=== PATIENT | male | born 1990 | race Caucasian/White ===

== ENCOUNTER 2019-09-28 23:22 | Emergency (ER) | payer MEDICAID ==
[~2019-09-28] VITALS: Ht 180.3 cm; Wt 72.6 kg
--- NOTE | 2019-09-28 23:30 | NUR ---
ED Nurse Note: brought in by ambulance natalya ra 28 from [place] for substance abuse; patient reports using meth x 2200. blood glucose 99. patient ao3 with rambling speech. Follows commands. Patient placed in room and changed into gown. no acute distress. PD at bedside. Denies HI or SI.
[2019-09-28 23:34] VITALS: BP 152/98
--- NOTE | 2019-09-28 23:50 | NUR ---
ED Nurse Note: ERMD at bedside
[2019-09-29] MEDS ORDERED: LORazepam 1mg tab ORAL ONE
--- NOTE | 2019-09-29 | NUR ---
ED Nurse Note: pt refused to provide UA
--- NOTE | 2019-09-29 00:04 | NUR ---
ED Nurse Note: Pt in bed. al mediations administered, pt tolerated well no ss of distress noted. Pt rambling, restless, irritable. Will continue to monitor.
--- NOTE | 2019-09-29 00:10 | Emergency Room Report ---
History of Present Illness General Chief Complaint: Substance Abuse Source: Patient Present Illness HPI Disclaimer: Please note that this report is being documented using [employer]AG[employer] technology. This can lead to erroneous entry secondary to incorrect interpretation by the dictating instrument. HPI: 28-year-old male history of methamphetamine abuse presented for methamphetamine intoxication. Patient states he used methamphetamine shortly prior to arrival which made him feel anxious. He called 911. Presented by EMS. Patient reports using methamphetamine daily. PMH: Patient denies any past medical history PSH: Reviewed Social Hx: Smokes cigarettes, drinks occasionally, uses methamphetamine Allergies: Coded Allergies: No Known Allergies (Unverified , 09/28/19) COVID-19 Screening Contact w/high risk pt: No Recent Travel to affected area: No Experienced COVID-19 symptoms?: No COVID-19 Testing performed STEEL [employer]ER: No Patient History Reviewed Nursing Documentation: PMH: Agreed; PSxH: Agreed Nursing Documentation-PMH Past Medical History: No Stated History Review of Systems All Other Systems: negative except mentioned in HPI Physical Exam Vital Signs Date Time Temp Pulse Resp B/P (MAP) Pulse Ox O2 Delivery O2 Flow Rate FiO2 09/28/19 23:25 98.4 94 26 152/98 (116) 99 Room Air Sp02 EP Interpretation: reviewed, normal General Appearance: well appearing, no apparent distress Head: normocephalic, atraumatic Eyes: bilateral eye PERRL, bilateral eye EOMI ENT: hearing grossly normal, moist mucus membranes, other - Dental caries Neck: full range of motion, supple Respiratory: lungs clear, normal breath sounds, no rhonchi, no respiratory distress, no retraction, no wheezing Cardiovascular #1: normal peripheral pulses, regular rate, rhythm, no murmur Gastrointestinal: non tender, soft, non-distended, no guarding Neurologic: alert, oriented x3, no focal defects Psychiatric: no suicidal/homicidal ideation, other - Patient with rambling thoughts, poor attention span Skin: normal color, warm/dry Medical Decision Making Diagnostic Impression: Primary Impression: Methamphetamine abuse ER Course Patient presented for methamphetamine abuse. On exam he was in no acute distress. Vital signs were stable. He did appear mildly psychotic from methamphetamine use. Will give Ativan, observe. Patient did sleep overnight. On reassessment in the morning he was alert, oriented, and clinically sober, stable for discharge to self-care. Patient advised to avoid further amphetamine use. Last Vital Signs Date Time Temp Pulse Resp B/P (MAP) Pulse Ox O2 Delivery O2 Flow Rate FiO2 09/28/19 23:34 94 26 Room Air 09/28/19 23:34 98.4 152/98 99 Status: improved Disposition: HOME, SELF-CARE Condition: Improved Scripts No Active Prescriptions or Reported Meds Referrals: NOT CHOSEN IPA/,REFERRING (PCP) Abdelrahman Smith M.D. Sep 29, 2019 00:10
[2019-09-29 01:45] VITALS: BP 145/92
--- NOTE | 2019-09-29 02:30 | NUR ---
ED Nurse Note: Pt sleeping, VSS no ss of distress noted.
[2019-09-29 04:15] VITALS: BP 126/82
--- NOTE | 2019-09-29 04:15 | NUR ---
ED Nurse Note: Pt sleeping, VSS no ss of distress noted.
[2019-09-29 06:20] VITALS: BP_SYST 125; BP_SYST 126; BP_DIAS 76; BP_DIAS 82
--- NOTE | 2019-09-29 06:20 | NUR ---
ER DISCHARGE NOTE: Patient is cleared to be discharged home per ERMD, pt is aox4, 99 on room air, with stable vital signs. pt was given dc instructions, pt was able to verbalize understanding, pt id band removed. pt is able to ambulate with steady gait. pt took all belongings. pt given resources, adequate food and clothing upon dc.
== END 2019-09-29 06:20 | disposition home or self-care (01) ==
LOC: EDBD 23:22 → EMR 23:43
DX: F15.10 Other stimulant abuse, uncomplicated (principal); F17.210 Nicotine dependence, cigarettes, uncomplicated; K02.9 Dental caries, unspecified
CPT/HCPCS: 99282